=== PATIENT | female | born 1990 ===

== ENCOUNTER → 2017-12-18 | Outpatient (CLI) | payer BC, OTHER ==
--- NOTE | 2017-12-18 17:25 | RADIOLOGY IMAGING REPORT ---
[place]AC[place] [facility] [place] NAME: Clari Vann : 1990 MR: [id number] V: [id number] EXAM DATE: ORDERING PHYSICIAN: TALYA BLACK TECHNOLOGIST: Location: [facility] Patient: Clari Vann : 1990 Visit/Account:[id number] Date of Sevice: 12/18/2017 Examination: Pelvic ultrasound Comparison: None Available History: Oligomenorrhea. Findings: Standard endovaginal and transabdominal pelvic ultrasound with color flow and spectral anal ysis. Uterus: Uterus measurement: 6.5 x 4.1 x 3.6 cm Endometrium measurement: 4 mm Retroverted uterus. Both the myometrium and endometrium are mildly heterogeneous but no discrete uter ine mass is identified. No vascular abnormality on Doppler interrogation. Cervical nabothian cysts. Adnexa: The ovaries are not visualized on endovaginal or transabdominal imaging. Free fluid: Small amount of simple appearing pelvic free fluid is nonspecific but favored to be physi ologic. Urinary bladder: Unremarkable. IMPRESSION: 1. Mildly heterogeneous uterus. No discrete uterine mass or vascular abnormality. 2. The ovaries are not visualized on endovaginal or transabdominal imaging. Report Dictated By: Anders Cowan MD at 12/18/2017 5:15 PM Report E-Signed By: Anders Cowan MD at 12/18/2017 5:21 PM WSN:[id number]
== END ==
LOC: US 00:54
PROVIDERS: ATTEND Family Medicine
DX: N88.8 Other specified noninflammatory disorders of cervix uteri (principal)
CPT/HCPCS: 76856